=== PATIENT | male | born 1970 | race Caucasian/White ===

== ENCOUNTER 2016-11-30 17:06 | Emergency (ER) | payer OTHER ==
--- NOTE | 2016-11-30 17:43 | ED NURSING NOTES ---
Clinical Report - Nurses [facility] [address] [place] [address] 11/30/2016 17:19 Patient: YOLY NELSON TRIAGE Triage time 1725. Acuity: LEVEL 4. Chief Complaint: INJURY TO THE LEFT THUMB (small avulsion to tip of left thumb). --17:34 Indu Patterson R.N. 17:25 11/30/16. BP: 145/96. HR: 73. RR: 16. O2 saturation: 100%. Temp: 98.4 F. Pain level now: 01/09. --17:34 Indu Patterson R.N. Weight: 81.6 kg stated. Height/Length: 68 inches Per Patient. BMI: 27.4. --17:28 Indu Patterson R.N. Medications None. --17:28 Indu Patterson R.N. Allergies NKDA. --17:28 Indu Patterson R.N. History Arrived by private vehicle. Historian: patient. Unaccompanied. This occurred just prior to arrival. He sustained a laceration from a knife. PAST MEDICAL HX: Tetanus status: unknown. ( asthma). SURGERY HX: Umbilical hernia repair. SOCIAL HX: Never smoker. Alcohol use; consumes two glasses of wine daily. --17:34 Indu Patterson R.N. Interventions ID band on patient. To treatment room. --17:34 Indu Patterson R.N. PHYSICAL ASSESSMENT Ambulatory to room. GENERAL / NEURO / PSYCH: Alert. Appears in no acute distress. EXTREMITIES: Capillary refill is less than 2 seconds in the extremities. Extremity pulses are within normal limits. Extremities exhibit normal ROM. Tip of left thumb: tip amputation (partial thickness). SKIN: Skin is warm and dry. --17:32 Indu Patterson R.N. NURSING PROGRESS NOTES 17:25. Cold pack applied. Reassurance given. Patient identifiers checked. Call light placed in reach. Side rails up. Bed placed in lowest position. Patient ready for evaluation- chart flagged. --17:31 Indu Patterson R.N. 17:40 11/30/2016 SZCAHRS-JLLJRW-YBELC PERTUSSIS IM 0.5 mL given. (Lot#: [id number], expiration date: 09/03/2018, Community Outreach Worker: [employer]). Given in the left deltoid. Vaccine information statement provided to the patient. --18:13 Indu Patterson R.N. 17:45 11/30/2016 GELFOAM Topical 1 application. (to left thumb tip avulsion). --18:14 Indu Patterson R.N. 17:40. Wound cleansed with sterile saline (irrigated with 500cc NS). --18:15 Indu Patterson R.N. 17:45. Applied clean dressing consisting of gauze. Secured with tube gauze (gelfoam applied over wound site, then gauze and tube gauze added.). --18:16 Indu Patterson R.N. DISPOSITION / DISCHARGE Condition at departure: improved and stable. No learning barriers present. Discharge instructions provided and reviewed with the patient. Reviewed medication(s) (tylenol or motrin for pain). Reviewed wound care instructions. Patient verbalized understanding. Written instructions provided in Chinese. The patient was discharged to work and unaccompanied at time of discharge. He left the Emergency Department ambulatory and via private vehicle. Patient driving. --18:17 Indu Patterson R.N. 18:00 11/30/16. BP: 134/86. HR: 78. RR: 18. O2 saturation: 100%. Temp: deferred. Pain level now: 02/06. --18:17 Indu Patterson R.N. Locked/Released at 11/30/2016 18:18 by Indu Patterson R.N.
--- NOTE | 2016-11-30 17:43 | ED ORDER SUMMARY ---
..... Patient: YOLY NELSON OrderSheet [facility] VisitID: [id number] [place] [address] 46y, M Registration Date/Time: 11/30/2016 ORDER SHEET Weight: 81.6 kg (stated) Allergies: NKDA GENERAL ORDERS: Irrigate Wounds (17:41 11/30/2016 Catrachito Joy) (18:10 DDean R.N.) Dress Wounds (17:41 11/30/2016 Catrachito Joy) (18:10 DDean R.N.) MEDICATION ORDERS: Qyuweak-Hdjbno-Ctmzh Pertussis IM 0.5 mL (NOW, per protocol) (18:11 11/30/2016 DDean R.N. per protocol) (18:13 DDean R.N.) Gelfoam 1 application (NOW) (18:13 11/30/2016 DDean R.N. verbal order read back to Catrachito Joy) (18:14 DDean R.N.) IV FLUIDS: ORDER SHEET NOTES: [Electronically signed by Indu Patterson R.N. (18:18 11/30/2016)] [Electronically signed by Everette Napier Dr. (18:20 11/30/2016)] [Electronically locked/signed by Indu Patterson R.N. (18:18 11/30/2016)]
--- NOTE | 2016-11-30 17:43 | ED NURSING NOTES ---
Clinical Report - Nurses [facility] [address] [place] [address] 11/30/2016 17:19 Patient: YOLY NELSON TRIAGE Triage time 1725. Acuity: LEVEL 4. Chief Complaint: INJURY TO THE LEFT THUMB (small avulsion to tip of left thumb). --17:34 Indu Patterson R.N. 17:25 11/30/16. BP: 145/96. HR: 73. RR: 16. O2 saturation: 100%. Temp: 98.4 F. Pain level now: 01/09. --17:34 Indu Patterson R.N. Weight: 81.6 kg stated. Height/Length: 68 inches Per Patient. BMI: 27.4. --17:28 Indu Patterson R.N. Medications None. --17:28 Indu Patterson R.N. Allergies NKDA. --17:28 Indu Patterson R.N. History Arrived by private vehicle. Historian: patient. Unaccompanied. This occurred just prior to arrival. He sustained a laceration from a knife. PAST MEDICAL HX: Tetanus status: unknown. ( asthma). SURGERY HX: Umbilical hernia repair. SOCIAL HX: Never smoker. Alcohol use; consumes two glasses of wine daily. --17:34 Indu Patterson R.N. Interventions ID band on patient. To treatment room. --17:34 Indu Patterson R.N. PHYSICAL ASSESSMENT Ambulatory to room. GENERAL / NEURO / PSYCH: Alert. Appears in no acute distress. EXTREMITIES: Capillary refill is less than 2 seconds in the extremities. Extremity pulses are within normal limits. Extremities exhibit normal ROM. Tip of left thumb: tip amputation (partial thickness). SKIN: Skin is warm and dry. --17:32 Indu Patterson R.N. NURSING PROGRESS NOTES 17:25. Cold pack applied. Reassurance given. Patient identifiers checked. Call light placed in reach. Side rails up. Bed placed in lowest position. Patient ready for evaluation- chart flagged. --17:31 Indu Patterson R.N. 17:40 11/30/2016 OBNDZXC-JBZPVC-XBCAJ PERTUSSIS IM 0.5 mL given. (Lot#: [id number], expiration date: 09/03/2018, Tile Setter Supervisor: [employer]). Given in the left deltoid. Vaccine information statement provided to the patient. --18:13 Indu Patterson R.N. 17:45 11/30/2016 GELFOAM Topical 1 application. (to left thumb tip avulsion). --18:14 Indu Patterson R.N. 17:40. Wound cleansed with sterile saline (irrigated with 500cc NS). --18:15 Indu Patterson R.N. 17:45. Applied clean dressing consisting of gauze. Secured with tube gauze (gelfoam applied over wound site, then gauze and tube gauze added.). --18:16 Indu Patterson R.N. DISPOSITION / DISCHARGE Condition at departure: improved and stable. No learning barriers present. Discharge instructions provided and reviewed with the patient. Reviewed medication(s) (tylenol or motrin for pain). Reviewed wound care instructions. Patient verbalized understanding. Written instructions provided in Vietnamese. The patient was discharged to work and unaccompanied at time of discharge. He left the Emergency Department ambulatory and via private vehicle. Patient driving. --18:17 Indu Patterson R.N. 18:00 11/30/16. BP: 134/86. HR: 78. RR: 18. O2 saturation: 100%. Temp: deferred. Pain level now: 02/06. --18:17 Indu Patterson R.N. Locked/Released at 11/30/2016 18:18 by Indu Patterson R.N.
--- NOTE | 2016-11-30 17:43 | ED CLINICAL REPORT ---
Clinical Report - Physicians/Mid Levels [facility] [address] [place] [address] 11/30/2016 17:19 Patient: YOLY NELSON Arrived- By private vehicle. Historian- patient. HISTORY OF PRESENT ILLNESS Chief Complaint: Injury to the left thumb. The injury happened just prior to arrival today. Occurred at work. The patient sustained a laceration. Patient is experiencing mild pain. Patient denies injury to the head or neck. No other injury. 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 Patient reports says that he caught the left thumb with a knife. He reports immediate onset of pain bleeding controlled prior to arrival in the emergency department. Tetanus is not up-to-date. No numbness, weakness, tingling. Patient reports no other injuries.). REVIEW OF SYSTEMS The patient sustained a laceration. No swelling, tingling or numbness. All systems otherwise negative, except as recorded above. PAST HISTORY See nurses notes. Tetanus immunization status is unknown. Medications: None. Allergies: NKDA. SOCIAL HISTORY Never smoker. Regular alcohol use; consumes two glasses of wine. No drug use. Is a local resident. ADDITIONAL NOTES The nursing notes have been reviewed. PHYSICAL EXAM Vital Signs: 11/30/2016 17:25 BP: 145/96. HR: 73. RR: 16. O2 saturation: 100%. Temp: 98.4 F. Pain level now: 2/10. Hypertensive. Oxygen saturation normal. Appearance: Alert. Oriented X3. No acute distress. CVS: Normal heart rate and rhythm. Heart sounds normal. Pulses normal. Respiratory: No respiratory distress. Breath sounds normal. Chest nontender. Abdomen: No visible injury. Soft and nontender. Bowel sounds normal. No mass. Extremities: (Small superficialfingertip amputation involving the distal 1/5 of the nail. No bone exposure. Patient is neurovascularly intact. No tendon involvement. No other lacerations. Wound is without gross contamination or foreign body. Bleeding is controlled.). Extremities otherwise negative. PROGRESS AND PROCEDURES Course of Care: The patient is a 38-year-old malewith no pertinent past medical history presenting for evaluation offingertip laceration. Based on the patient's exam and history, the fingertip is not unable to suturing. Unable toclose the wound based on the injury. At this time patient's wound will be managed conservatively with dressing changes andirrigation. Patient is able to return to workprovided he has double gloved and working with food products. Otherwise, patient is not allowed to work with food. No other modalities. Tetanus was updated here in the emergency department. Do not feel radiographs of the hand are warranted at this time based on mechanism of injury and exam findings. Discussed outpatient infection risk. Discussed with patient workup, diagnosis, home care, follow-up, and return precautions. All questions answered. Patient expressed understanding of these instructions and was agreeable to them. Patient is allowed to go back to work provided the following. He was met noted above. Worker's comp form filled out in the emergency department. Disposition: Discharged. Condition: good. CLINICAL IMPRESSION 11/30/2016 17:25 BP: 145/96. HR: 73. RR: 16. O2 saturation: 100%. Temp: 98.4 F. Pain level now: 2/10. Hypertensive. Oxygen saturation normal. Single superficial skin avulsion of the left thumb.No foreign body present. INSTRUCTIONS Warnings: GENERAL WARNINGS: Return or contact your physician immediately if your condition worsens or changes unexpectedly, if not improving as expected, or if other problems arise. Specifically return if pain, vomiting, bleeding, breathing difficulty or fever. Redness, swelling, increasing pain or other concerns. Your Current Medications: CONTINUE TAKING THE FOLLOWING MEDICATIONS: None*. OTC Medications: Acetaminophen (available over the counter): take according to label instructions. Motrin (available over the counter): take according to label instructions. Follow-up: Return to the emergency department as needed. Follow up with your doctor in one week. Reason for referral: recheck today's concerns. Summary of care provided to patient via paper. Screening today revealed the patient's blood pressure to be in the normal range. The patient should follow up with a primary care provider for blood pressure management. Understanding of the discharge instructions verbalized by patient. Follow-up with: [facility], , , [address], , [place], [phone] Follow up. Reason for referral: contact if you do not have a doctor. Summary of care provided to patient via paper. (Electronically signed by Everette Napier Dr. 11/30/2016 18:20)
--- NOTE | 2016-11-30 17:43 | ED CLINICAL REPORT ---
Clinical Report - Physicians/Mid Levels [facility] [address] [place] [address] 11/30/2016 17:19 Patient: YOLY NELSON Arrived- By private vehicle. Historian- patient. HISTORY OF PRESENT ILLNESS Chief Complaint: Injury to the left thumb. The injury happened just prior to arrival today. Occurred at work. The patient sustained a laceration. Patient is experiencing mild pain. Patient denies injury to the head or neck. No other injury. 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 Patient reports says that he caught the left thumb with a knife. He reports immediate onset of pain bleeding controlled prior to arrival in the emergency department. Tetanus is not up-to-date. No numbness, weakness, tingling. Patient reports no other injuries.). REVIEW OF SYSTEMS The patient sustained a laceration. No swelling, tingling or numbness. All systems otherwise negative, except as recorded above. PAST HISTORY See nurses notes. Tetanus immunization status is unknown. Medications: None. Allergies: NKDA. SOCIAL HISTORY Never smoker. Regular alcohol use; consumes two glasses of wine. No drug use. Is a local resident. ADDITIONAL NOTES The nursing notes have been reviewed. PHYSICAL EXAM Vital Signs: 11/30/2016 17:25 BP: 145/96. HR: 73. RR: 16. O2 saturation: 100%. Temp: 98.4 F. Pain level now: 2/10. Hypertensive. Oxygen saturation normal. Appearance: Alert. Oriented X3. No acute distress. CVS: Normal heart rate and rhythm. Heart sounds normal. Pulses normal. Respiratory: No respiratory distress. Breath sounds normal. Chest nontender. Abdomen: No visible injury. Soft and nontender. Bowel sounds normal. No mass. Extremities: (Small superficialfingertip amputation involving the distal 1/5 of the nail. No bone exposure. Patient is neurovascularly intact. No tendon involvement. No other lacerations. Wound is without gross contamination or foreign body. Bleeding is controlled.). Extremities otherwise negative. PROGRESS AND PROCEDURES Course of Care: The patient is a 38-year-old malewith no pertinent past medical history presenting for evaluation offingertip laceration. Based on the patient's exam and history, the fingertip is not unable to suturing. Unable toclose the wound based on the injury. At this time patient's wound will be managed conservatively with dressing changes andirrigation. Patient is able to return to workprovided he has double gloved and working with food products. Otherwise, patient is not allowed to work with food. No other modalities. Tetanus was updated here in the emergency department. Do not feel radiographs of the hand are warranted at this time based on mechanism of injury and exam findings. Discussed outpatient infection risk. Discussed with patient workup, diagnosis, home care, follow-up, and return precautions. All questions answered. Patient expressed understanding of these instructions and was agreeable to them. Patient is allowed to go back to work provided the following. He was met noted above. Worker's comp form filled out in the emergency department. Disposition: Discharged. Condition: good. CLINICAL IMPRESSION 11/30/2016 17:25 BP: 145/96. HR: 73. RR: 16. O2 saturation: 100%. Temp: 98.4 F. Pain level now: 2/10. Hypertensive. Oxygen saturation normal. Single superficial skin avulsion of the left thumb.No foreign body present. INSTRUCTIONS Warnings: GENERAL WARNINGS: Return or contact your physician immediately if your condition worsens or changes unexpectedly, if not improving as expected, or if other problems arise. Specifically return if pain, vomiting, bleeding, breathing difficulty or fever. Redness, swelling, increasing pain or other concerns. Your Current Medications: CONTINUE TAKING THE FOLLOWING MEDICATIONS: None*. OTC Medications: Acetaminophen (available over the counter): take according to label instructions. Motrin (available over the counter): take according to label instructions. Follow-up: Return to the emergency department as needed. Follow up with your doctor in one week. Reason for referral: recheck today's concerns. Summary of care provided to patient via paper. Screening today revealed the patient's blood pressure to be in the normal range. The patient should follow up with a primary care provider for blood pressure management. Understanding of the discharge instructions verbalized by patient. Follow-up with: [facility], , , [address], , [place], [id number] Follow up. Reason for referral: contact if you do not have a doctor. Summary of care provided to patient via paper. (Electronically signed by Everette Napier Dr. 11/30/2016 18:20)
--- NOTE | 2016-11-30 17:43 | ED ORDER SUMMARY ---
..... Patient: YOLY NELSON OrderSheet [facility] VisitID: [id number] [place] [address] 46y, M Registration Date/Time: 11/30/2016 ORDER SHEET Weight: 81.6 kg (stated) Allergies: NKDA GENERAL ORDERS: Irrigate Wounds (17:41 11/30/2016 Catrachito Joy) (18:10 DDean R.N.) Dress Wounds (17:41 11/30/2016 Catrachito Joy) (18:10 DDean R.N.) MEDICATION ORDERS: Hrairvr-Pvfhgv-Exqtv Pertussis IM 0.5 mL (NOW, per protocol) (18:11 11/30/2016 DDean R.N. per protocol) (18:13 DDean R.N.) Gelfoam 1 application (NOW) (18:13 11/30/2016 DDean R.N. verbal order read back to Catrachito Joy) (18:14 DDean R.N.) IV FLUIDS: ORDER SHEET NOTES: [Electronically signed by Indu Patterson R.N. (18:18 11/30/2016)] [Electronically signed by Everette Napier Dr. (18:20 11/30/2016)] [Electronically locked/signed by Indu Patterson R.N. (18:18 11/30/2016)]
--- NOTE | 2016-11-30 18:20 | ED MAR SUMMARY ---
..... Medication Administration Record [facility] [address] [place] [address] Patient: YOLY NELSON Visit ID: [id number] 46y, M Weight: 81.6 kg Height/Length: 68 in BMI: 27.4 ALLERGIES: NKDA Given 17:40 11/30/2016 Indu Patterson RLucrecia. Medication Administered: WBCHDHM-ZJJNSG-ETIJC PERTUSSIS [IM], Dose: 0.5 mL IM. Medication Ordered: Inmhptd-Ccgcmr-Peaas Pertussis IM 0.5 mL (NOW, per protocol). Given 17:45 11/30/2016 Indu Patterson, RLiuN. Medication Administered: GELFOAM, Dose: 1 application Topical. Medication Ordered: Gelfoam 1 application (NOW).
--- NOTE | 2016-11-30 18:20 | ED MAR SUMMARY ---
..... Medication Administration Record [facility] [address] [place] [address] Patient: YOLY NELSON Visit ID: [id number] 46y, M Weight: 81.6 kg Height/Length: 68 in BMI: 27.4 ALLERGIES: NKDA Given 17:40 11/30/2016 Indu Patterson RLucrecia. Medication Administered: QWLRUZI-LLFPSX-FPRNG PERTUSSIS [IM], Dose: 0.5 mL IM. Medication Ordered: Kurywoo-Sijlzq-Qpkxf Pertussis IM 0.5 mL (NOW, per protocol). Given 17:45 11/30/2016 Indu Patterson, RLiuN. Medication Administered: GELFOAM, Dose: 1 application Topical. Medication Ordered: Gelfoam 1 application (NOW).
--- NOTE | 2016-11-30 18:20 | ED DISCHARGE INSTRUCTIONS ---
Patient: YOLY NELSON General Instructions [facility] VisitID: [id number] [address] [place] [place] [address] 46y, M Registration Date/Time: 11/30/2016 11/30/2016 17:25 BP: 145/96. HR: 73. RR: 16. O2 saturation: 100%. Temp: 98.4 F. Pain level now: 210. Hypertensive. Oxygen saturation normal. Single superficial skin avulsion of the left thumb.No foreign body present. INSTRUCTIONS Warnings: GENERAL WARNINGS: Return or contact your physician immediately if your condition worsens or changes unexpectedly, if not improving as expected, or if other problems arise. Specifically return if pain, vomiting, bleeding, breathing difficulty or fever. Redness, swelling, increasing pain or other concerns. Your Current Medications: CONTINUE TAKING THE FOLLOWING MEDICATIONS: None*. OTC Medications: Acetaminophen (available over the counter): take according to label instructions. Motrin (available over the counter): take according to label instructions. Follow-up: Return to the emergency department as needed. Follow up with your doctor in one week. Reason for referral: recheck today's concerns. Summary of care provided to patient via paper. Screening today revealed the patient's blood pressure to be in the normal range. The patient should follow up with a primary care provider for blood pressure management. Understanding of the discharge instructions verbalized by patient. Follow-up with: [facility], , , [address], , [place], [id number] Follow up. Reason for referral: contact if you do not have a doctor. Summary of care provided to patient via paper. (Electronically signed by Everette Napier Dr. 11/30/2016 18:20)
--- NOTE | 2016-11-30 18:20 | ED MED RECONCILIATION SUMMARY ---
Patient: YOLY NELSON Medication Reconciliation Report [facility] VisitID: [id number] [place] [address] 46y, M Registration Date/Time: 11/30/2016 Weight: 81.6 kg Height/Length: 68 in. BMI: 27.4 ALLERGIES: NKDA The patient's Home Medications are listed below: NONE. The source(s) of the original Home Medication information: Not obtained. The following Medications were given to the patient in the Emergency Department: MIGQQDC-UQOYCX-TAUYH PERTUSSIS [IM] IM 0.5 mL, administered: 11/30/2016 5:40:00 PM GELFOAM Topical 1 application, administered: 11/30/2016 5:45:00 PM The following Medications were prescribed to the patient: Acetaminophen (available over the counter): take according to label instructions. -- Everette Napier Dr. Motrin (available over the counter): take according to label instructions. -- Everette Napier Dr.
--- NOTE | 2016-11-30 18:20 | ED MED RECONCILIATION SUMMARY ---
Patient: YOLY NELSON Medication Reconciliation Report [facility] VisitID: [id number] [place] [address] 46y, M Registration Date/Time: 11/30/2016 Weight: 81.6 kg Height/Length: 68 in. BMI: 27.4 ALLERGIES: NKDA The patient's Home Medications are listed below: NONE. The source(s) of the original Home Medication information: Not obtained. The following Medications were given to the patient in the Emergency Department: BZZWGQY-TKMTSY-WRTJS PERTUSSIS [IM] IM 0.5 mL, administered: 11/30/2016 5:40:00 PM GELFOAM Topical 1 application, administered: 11/30/2016 5:45:00 PM The following Medications were prescribed to the patient: Acetaminophen (available over the counter): take according to label instructions. -- Everette Napier Dr. Motrin (available over the counter): take according to label instructions. -- Everette Napier Dr.
--- NOTE | 2016-11-30 18:20 | ED DISCHARGE INSTRUCTIONS ---
Patient: YOLY NELSON General Instructions [facility] VisitID: [id number] [address] [address] 46y, M Registration Date/Time: 11/30/2016 11/30/2016 17:25 BP: 145/96. HR: 73. RR: 16. O2 saturation: 100%. Temp: 98.4 F. Pain level now: 210. Hypertensive. Oxygen saturation normal. Single superficial skin avulsion of the left thumb.No foreign body present. INSTRUCTIONS Warnings: GENERAL WARNINGS: Return or contact your physician immediately if your condition worsens or changes unexpectedly, if not improving as expected, or if other problems arise. Specifically return if pain, vomiting, bleeding, breathing difficulty or fever. Redness, swelling, increasing pain or other concerns. Your Current Medications: CONTINUE TAKING THE FOLLOWING MEDICATIONS: None*. OTC Medications: Acetaminophen (available over the counter): take according to label instructions. Motrin (available over the counter): take according to label instructions. Follow-up: Return to the emergency department as needed. Follow up with your doctor in one week. Reason for referral: recheck today's concerns. Summary of care provided to patient via paper. Screening today revealed the patient's blood pressure to be in the normal range. The patient should follow up with a primary care provider for blood pressure management. Understanding of the discharge instructions verbalized by patient. Follow-up with: [facility], , , [address], , [place], [id number] Follow up. Reason for referral: contact if you do not have a doctor. Summary of care provided to patient via paper. (Electronically signed by Everette Napier Dr. 11/30/2016 18:20)
== END 2016-11-30 18:00 | disposition home or self-care (01) ==
LOC: ED SRH 17:06
DX: S61.002A Unspecified open wound of left thumb without damage to nail, initial encounter (principal); W26.0XXA Contact with knife, initial encounter; Y93.89 Activity, other specified; Y92.69 Other specified industrial and construction area as the place of occurrence of the external cause; Y99.0 Civilian activity done for income or pay; Z23 Encounter for immunization